=== PATIENT | female | born 1945 | race Caucasian/White ===

== ENCOUNTER 2023-07-28 08:56 | Day surgery (SDC) | payer OTHER, SELFPAY ==
[2023-07-28] VITALS (22 sets, daily range): BP systolic 107–173; BP diastolic 67–96; PULSE 57–90; RESP 14–18; TEMP 35.9–37; O2SAT 93–99; BMI 28.2
[2023-07-28] MEDS: ACETAMINOPHEN 500 MG TABLET 1000 MG PO ×3 (09:50→22:47)
[2023-07-28] MEDS: OXYCODONE (CR) 10 MG TAB.ER.12H PO (09:50)
[2023-07-28] MEDS: SCOPOLAMINE 1 MG/3 DAY PATCH 1 PATCH TRANSDERMA (10:10)
[2023-07-28] MEDS: LACTATED RINGERS 1000 ML 1,000 ML 100 ML IV (10:17)
[2023-07-28] MEDS: SODIUM CHLORIDE 0.9 % (FLUSH) 10 ML SYRINGE IVF (10:18)
--- NOTE | 2023-07-28 10:42 | W.PM.H&PU ---
History & Physical Update History & Physical Update H&P Reviewed and patient assessed: No changes noted
--- NOTE | 2023-07-28 10:43 | XR_ITS ---
Patient: WU MUÑOZ Facility:?[facility] Patient ID:?[id number] Site Patient ID:?[id number]. Site :?[id number] Study:?XRay-Knee Right POST OP-07/28/2023 3:46:41 PM Ordering Physician:DAGOBERTO Final Report: Indication: Postop TKA Technique: Two views right knee Findings/Impression: Hardware from a right total knee arthroplasty is in satisfactory position. Bone alignment is normal. No sign of acute fracture. Postop changes are within normal limits. Dictated by Flaquito Gleason MD @ 07/29/2023 8:56:45 AM Signed by:?Flaquito Gleason MD @07/29/2023 8:56:45 AM (Electronic Signature)
[2023-07-28] MEDS: MIDAZOLAM HCL 1 MG/ML inj IVP (11:32)
--- NOTE | 2023-07-28 11:51 | SUR.PREOP ---
TIME?OUT:?1132 PT/RN/MDA?VERIFICATION?OF?SURGICAL?SITE,?PROCEDURE,?AND?CONSENT OBTAINED?PRIOR?TO?INVASIVE?PROCEDURE. ALL IN AGREEMENT
--- NOTE | 2023-07-28 12:28 | W.PM.NB ---
Nerve Block Nerve Block Time Seen by Provider: 11:35 Date Seen: 07/28/23 Type of block requested by surgeon for post-operative analgesia: adductor canal Side: right Time out performed: Yes Verification of patient name: Yes Verification of date of : Yes Site marking: site marked Name of person performing procedure: Alexis Continuous monitoring Was continuous monitoring of O2 sat, B/P, quality assurance monitor body, recorded every 15 minutes?: Yes Procedure Checklist: sterile prep, needles and gloves Ultrasound guided. Images saved: Yes Medications given in 5ml increments after negative aspiration: Ropivicaine %: 0.5 mL: 20 Needle gauge: 20 Decadron (mg): 10 Precedex (mcg): 25 Patient tolerated procedure well: Yes Additional comments: Needle noted adjacent to nerve Block Charges Block Charge (with Pro Fee): Femoral Nerve Use of Ultrasound Machine for Block: Yes- US Guidance/pain block
--- NOTE | 2023-07-28 12:29 | W.PM.NB ---
Nerve Block Nerve Block Time Seen by Provider: 11:35 Date Seen: 07/28/23 Type of block requested by surgeon for post-operative analgesia: geniculars Side: right Time out performed: Yes Verification of patient name: Yes Verification of date of : Yes Site marking: site marked Name of person performing procedure: Alexis Continuous monitoring Was continuous monitoring of O2 sat, B/P, monitoring and evaluation advisor, recorded every 15 minutes?: Yes Procedure Checklist: sterile prep, needles and gloves Medications given in 5ml increments after negative aspiration: Ropivicaine %: 0.5 mL: 9 Needle gauge: 25 Patient tolerated procedure well: Yes Block Charges Block Charge (with Pro Fee): Genicular Nerve Block Use of Ultrasound Machine for Block: No
--- NOTE | 2023-07-28 12:29 | W.ANESCHARGE ---
Anesthesia Charges Start Date/Time Anesthesia Start Date: 07/28/23 Anesthesia Start Time: 12:13 Stop Date/Time Anesthesia Stop Date: 07/28/23 Anesthesia Stop Time: 14:13 Summary Extremes of Age - Over 70 or under 1: MDA
--- NOTE | 2023-07-28 13:34 | P.ORPRC_ITS ---
Procedure Note Date of procedure: 07/28/23 Procedure: PREOPERATIVE DIAGNOSIS: 1. Right knee osteoarthritis, primary, severe POSTOPERATIVE DIAGNOSIS: 1. Right knee osteoarthritis, primary, severe PROCEDURE: 1. Right total knee arthroplasty SURGEON: Levi Serrano MD. NURSING CONSULTANT: LITA Vuong - Of note, a skilled construction administrative assistant was critical for this case to aid in patient positioning, tissue retraction, limb manipulation/positioning, and closure. ANESTHESIA: Spinal anesthetic IMPLANTS: DePuy J&J all cemented TKA - Attune PS femur size 6 regular, size 5 tibia, 5 poly spacer, 35 mm patella TOURNIQUET: 80 minutes at 300 torr EBL: 50 ml COMPLICATIONS: None evident INDICATIONS: The patient is a pleasant 78-year-old female who has experienced severe right knee pain and difficulty bearing weight. Workup included x-rays w [facility] revealed severe osteoarthrosis in the knee. Given the deformity, the dysfunction, and the pain, as well as the failure of nonoperative management, recommendation was made for surgery. FINDINGS: Full-thickness chondral loss diffusely throughout the medial compartment with degenerative medial meniscus pathology. To lesser degree lateral and patellofemoral chondromalacia and lateral meniscus pathology. Large effusion upon entering the joint. DESCRIPTION OF PROCEDURE: Following a thorough discussion of risks, benefits, and alternatives consent was obtained and the right knee was marked. The patient was brought to the operating room and placed supine on the operating table. Induction of anesthesia was undertaken. 2 g IV Ancef and 1 g tranexamic acid was administered within 1 hr of incision preoperatively. Proper time-out was performed identifying proper patient, site, procedure. The operative extremity was prepped and draped in the appropriate sterile fashion using ChloraPrep after the patient was positioned supine with all bony prominences well padded. A longitudinal, anterior, midline skin incision was made starting approximately 3cm proximal to the superior pole of the patella and advanced distal to the tibial tubercle. A median parapatellar arthrotomy was created. A medial subperiosteal sleeve was created with knife, irving elevator and curved osteotome. The retropatellar fatpad was resected and the synovium in the suprapatellar pouch excised to visualize the anterior femoral cortex. Femoral preparation was performed via an intramedullary guide. Step drill allowed access into the femoral canal. The distal cutting guide was placed with 5? of valgus and 10 mm cut on the distal femur. Femur was sized using a posterior referencing guide in 3? of external rotation. This found have a best fit with the sizing noted above. The 4 in 1 cutting block was then placed, and the distal femur shaped accordingly. The box cut was then created and the trial implant inserted to confirm appropriate fit. We turned our attention to the proximal tibia. Extramedullary guide was utilized for cutting with the goal of being 90 degree cut from the mechanical axis of the tibia in the varus/valgus plane utilizing tibial crest as the primary alignment. Initially a 2 mm resection was performed from the medial tibial plateau. Ultimately, balancing was achieved in both flexion and extension in both varus and valgus. The knee was able to achieve full extension as well comfortably. The patella was initially measured and found have a thickness of 21 mm. It was resected back to approximately 14 mm. It was sized to be a best fit with as noted above. This was drilled, trial placed. All trials were placed and found to have an excellent stability and balance. At this stage, trial implants were removed, the knee was thoroughly irrigated with normal saline, and the cement was mixed. After irrigation, the knee was thoroughly dried, and cement placed, with the real tibial and femoral implants placed along with the patella. Trial poly spacer was placed and confirmed to have excellent range of motion and full extension, and the real poly spacer opened and inserted. All extra cement was removed, and a 3 min Betadine soak performed. Finally, a final irrigation round with normal saline was performed. Closure performed with 0 Vicryl and #0 Stratafix for the quad tendon/retinaculum. 2-0 Vicryl for the subcutaneous and 4-0 Stratafix for subcuticular closure. Dressings were applied and the patient was awoken from anesthesia after the tourniquet deflated and transferred the PACU in stable condition. A skilled construction administrative assistant was critical for this case to aid in patient positioning, tissue retraction, bone exposure, limb manipulation/positioning, patient safety, and closure. PLAN: 1. Weight bear as tolerated operative extremity. 2. 23 hr perioperative antibiotics. 3. Ice. 4. PT/OT consults for ambulation assistance/mobility education. 5. Social work consult for discharge planning. 6. DVT prophylaxis with at SCDs, Dameon Hose, and aspirin twice daily.
[2023-07-28] MEDS: LACTATED RINGERS 1000 ML 1,000 ML 35 ML IV (14:29)
[2023-07-28] MEDS: OXYCODONE 5 MG TABLET PO ×2 (16:26→22:48)
--- NOTE | 2023-07-28 17:07 | P.IMCN_ITS ---
Date of Consult Patient: Naresh Patient Consult date: 07/28/23 Requesting Physician: Orthopedics Primary Care Provider: Shayla Hamm, DO Consult Narrative Narrative: Savi Caceres is a 78 year old female who underwent right total knee arthroplasty today. Procedure performed by Dr. Serrano. He requests consultation for management of medical problems following surgery. There were no apparent operative complications. Postoperatively patient was feeling quite chilled. She has had a Eleuterio Hugger in place and is now warming up. She also reports a history of severe postoperative nausea but reports she is doing okay at this time. Her pain is adequately controlled though she is beginning to have some increasing knee pain. She reports when she came to the hospital today she was feeling fine. She had a preop physical which did not reveal any significant perioperative concerns. Review of Systems Narrative: No recent illness or injury [facility] Medical History (Updated 07/28/23 @ 17:15 by Rachid Chiang MD) Osteopenia ?M85.80 - Other specified disorders of bone density and structure, unspecified site (ICD-10) Breast cancer, left (1999) ?C50.912 - Malignant neoplasm of unspecified site of left female breast (ICD- 10) Cholecystitis ?K81.9 - Cholecystitis, unspecified (ICD-10) Acute and chronic cholecystitis ?K81.2 - Acute cholecystitis with chronic cholecystitis (ICD-10) Surgical History (Updated 07/28/23 @ 17:14 by Rachid Chiang MD) History of bunionectomy of left great toe (1994) ?Z98.890 - Other specified postprocedural states (ICD-10) S/P ORIF (open reduction internal fixation) fracture (06/10/12) ?Z98.890 - Other specified postprocedural states (ICD-10) ?Z87.81 - Personal history of (healed) traumatic fracture (ICD-10) Hx of cholecystectomy ?Z90.49 - Acquired absence of other specified parts of digestive tract (ICD- 10) Status post blepharoplasty of both eyes (05/2019) ?Z98.890 - Other specified postprocedural states (ICD-10) H/O breast biopsy ?Z98.890 - Other specified postprocedural states (ICD-10) H/O: hysterectomy ?Z90.710 - Acquired absence of both cervix and uterus (ICD-10) Family History (Updated 07/28/23 @ 17:11 by Rachid Chiang MD) Brother CML (chronic myelocytic leukemia) Prostate cancer Cardiovascular disease Mother Alzheimers disease Father Cardiovascular disease Colon cancer Social History (Updated 07/28/23 @ 17:12 by Rachid Chiang MD) Narrative: She lives at home with her . She does not smoke. She infrequently drinks alcohol. She lives in a house where her bedroom/bathroom is up 17 steps. She hopes to return home and sleep in her bedroom. What is your current living situation?: I presently have a place to live In the past 12 months, utilities in danger of being shut off: no In past 12 months, lack of transportation kept you from medical appts, meetings, work, or getting things needed for daily living: no In the past 12 mos, have been you worried that your food would run out before you had money to buy more?: never true In the past 12 mos, the food you bought just didn't last and you didn't have money to buy more?: never true Smoking Status: Never smoker How often do you have a drink containing alcohol: monthly or less How many standard drinks containing alcohol do you have on a typical day: 1 or 2 How often do you have six or more drinks on one occasion: Never AUDIT-C Alcohol total score: 1 Non-prescribed substance use: denies use Caffeine: Yes How often does anyone, including family, friends and others, physically hurt you : never How often does anyone, including family, friends and others, insult or talk down to you: never How often does anyone, including family, friends and others, threaten you with harm: never How often does anyone, including family, friends and others, scream or curse at you: never service: No Meds Home Medications and Allergies Home Medications Medication Instructions Recorded Confirmed Type alendronate 70 mg tablet 70 mg PO Q7D 06/08/23 07/28/23 History omega 7-pqs-jws-fish oil 100 1 cap PO DAILY 06/08/23 07/28/23 History mg-160 mg-1,000 mg capsule (Fish Oil) simvastatin 20 mg tablet 20 mg PO HS 06/08/23 07/28/23 History azelaic acid 15 % topical gel topical BID 07/28/23 History cholecalciferol (vitamin D3) 25 25 mcg PO DAILY 07/28/23 07/28/23 History mcg (1,000 unit) tablet diclofenac sodium 1 % topical gel 2 g topical QID 07/28/23 07/28/23 History (Motrin Arthritis Pain) glucosamine sulfate 500 mg tablet 500 mg PO TID 07/28/23 07/28/23 History (Glucosamine) multivitamin (Daily Value tablet) 1 tab PO DAILY 07/28/23 07/28/23 History Allergies Allergy/AdvReac Type Severity Reaction Status Date / Time fentanyl Allergy Intermediate Vomiting Verified 07/28/23 09:18 midazolam [From Versed] Allergy Intermediate Vomiting Verified 07/28/23 09:18 Exam Narrative: Exam Narrative: She is alert and appears in no distress. Oropharynx is normal. Neck is supple without mass or adenopathy. Respirations are clear to auscultation. Cardiovascular: S1, S2, regular rate and rhythm. No murmur gallop or rub. Abdomen: Bowel sounds active. Abdomen is soft without tenderness or mass. Right knee with bandage over the wound. Mild swelling. Distally no edema. Intact pulses sensation and good strength and motion in both feet and ankles Const: Vital Signs, click to edit/add: Vital Signs - 24 hr 07/28/23 10:15 07/28/23 11:35 07/28/23 11:40 Temperature 98.5 F Pulse Rate 90 60 59 L Respiratory Rate 16 18 18 Blood Pressure 173/93 H 135/79 155/77 H Pulse Oximetry 98 97 96 Oxygen Delivery Me thod Room Air Nasal Cannula Room Air Oxygen Flow Rate 2 07/28/23 14:09 07/28/23 14:14 07/28/23 14:19 Temperature 97 F L Pulse Rate 78 75 62 Respiratory Rate 15 15 15 Blood Pressure 107/68 107/71 111/72 Pulse Oximetry 95 95 95 Oxygen Delivery Me thod Room Air Room Air Room Air Oxygen Flow Rate 07/28/23 14:24 07/28/23 14:29 07/28/23 14:34 Temperature Pulse Rate 59 L 57 L 64 Respiratory Rate 15 15 15 Blood Pressure 117/74 117/67 122/68 Pulse Oximetry 97 97 98 Oxygen Delivery Me thod Room Air Room Air Room Air Oxygen Flow Rate 07/28/23 14:39 07/28/23 14:44 07/28/23 14:47 Temperature Pulse Rate 60 59 L 64 Respiratory Rate 15 15 14 Blood Pressure 124/72 128/85 130/70 Pulse Oximetry 99 99 99 Oxygen Delivery Me thod Room Air Room Air Room Air Oxygen Flow Rate Documenting provider has reviewed patient's vital signs: yes Assessment and Plan Assessment and plan (1) History of arthroplasty of right knee: Problem comment: 07/28/2023. Dr. Serrano. No complications Status: Acute (2) Osteopenia: Status: Acute Plan Patient is admitted to the hospital for right knee arthroplasty and routine postoperative care. Anticipate her immediate postoperative symptoms of nausea and chills will resolved. Routine therapy and routine pain management. Total Time Spent Total Time Spent: Total time spent today is 30 minutes, 20 minutes in coordination care discussing with patient and ongoing evaluation management of knee arthroplasty and postoperative care
[2023-07-28] MEDS: CEFAZOLIN 2 GM in 0.9 % SODIUM CHLORIDE Mini-bag 100 ML IVPB (18:44)
[2023-07-28] MEDS: ASPIRIN 81 MG TABLET EC PO (21:27)
[2023-07-28] MEDS: SIMVASTATIN 20 MG TABLET PO (21:27)
[2023-07-28] MEDS: SENNOSIDES 1 TAB TABLET 2 TAB PO (21:27)
[2023-07-29] MEDS: OXYCODONE 5 MG TABLET PO ×3 (01:56→09:17)
[2023-07-29] MEDS: CEFAZOLIN 2 GM in 0.9 % SODIUM CHLORIDE Mini-bag 100 ML IVPB (01:57)
[2023-07-29 02:08] VITALS: BP 149/72; PULSE 62; RESP 16; TEMP 37.1; O2SAT 97
[2023-07-29] MEDS: ACETAMINOPHEN 500 MG TABLET 1000 MG PO ×2 (05:42→12:07)
[2023-07-29 06:42] LABS: Hematocrit 36.2 % (33.0-51.0); Hemoglobin* 11.8 gm/dL (12.0-16.0); Immature Granulocytes Pct Auto 0.9 %; Lymphocytes Percent Auto 15.3 % (20-44); Mean Corpuscular HGB Conc 33 gm/dL (32-36); Mean Corpuscular Hemoglobin 28 pg (26-34); Mean Corpuscular Volume 87 fL (80-100); Monocytes Percent Auto 6.9 % (0.0-11.0); Neutrophils Percent Auto 76.9 % (42.0-72.0); Platelet Count* 275 K/uL (140-440); RDW Coefficient of Variation % 12.7 % (11.5-15.5); Red Blood Count 4.15 m/uL (4.00-5.20); White Blood Count* 14.71 K/uL (4.50-11.00)
--- NOTE | 2023-07-29 06:49 | PC.NURSE ---
Shift note: Pt is doing well ambulating with A1, walker and GB. Pain level was minimal at the beginning of shift but increased to 10/10 at 0400 per pt. Pt had enough urine and tolerated regular diet well. Saline locked. Dressing appeared clean and dry. Ice pack applied. Pleasant, A/O.
[2023-07-29 06:56] LABS: Potassium* 4.1 mmol/L (3.6-5.1); Sodium* 135 mmol/L (135-149)
[2023-07-29 06:59] LABS: Blood Urea Nitrogen* 17 mg/dL (7-30); Creatinine* 0.5 mg/dL (0.5-1.5); Estimated Glomerular Filt Rate 96 ml/min
[2023-07-29 07:02] LABS: Slide Review Reflex No
[2023-07-29] MEDS: GLUCOSAMINE SULFATE 500 MG CAPSULE PO (09:17)
[2023-07-29] MEDS: ASPIRIN 81 MG TABLET EC PO (09:17)
[2023-07-29] MEDS: MULTIVITAMIN/MINERALS 1 TABLET 1 TAB PO (09:17)
[2023-07-29] MEDS: SENNOSIDES 1 TAB TABLET 2 TAB PO (09:17)
[2023-07-29 09:23] VITALS: BP 136/73; PULSE 75; RESP 16; O2SAT 95
--- NOTE | 2023-07-29 11:18 | PM.ORPN ---
Subjective Subjective Date Seen: 07/29/23 Principal diagnosis: Status postop day 1 right total knee arthroplasty Interval history: Patient reports doing okay; stats that it hurts post PT this morning. Mild right calf pain. No acute events over night. Pain managed with scheduled and PRN medications, ice. DVT prophylaxis: 81 mg aspirin by mouth twice daily, bilateral knee high Dameon stockings, SCDs, walking. Denies fevers, chills, aches, N/V, CP, SOB/GUY, or lightheadedness. Ortho Exam Narrative Exam Narrative: -Patient appears comfortable; no apparent acute distress -Alert and oriented times 3 -Operative knee mildly swollen; soft tissues supple; no ecchymosis; no erythematous streaking Warmth appropriate -Surgical dressing clean, dry, intact; no drainage -Bilateral calfs soft; no significant swelling, edema, erythema, discoloration, warmth, or palpable cords. Mild-moderate tender right calf -2+ DP/PT pulses, intact dermatomes and myotomes distally (5/5 strength) Const Vital Signs, click to edit/add: Vital Signs - 24 hr 07/28/23 11:35 07/28/23 11:40 07/28/23 14:09 Temperature 97 F L Pulse Rate 60 59 L 78 Pulse Rate [Pulse Oximeter] Respiratory Rate 18 18 15 Blood Pressure 135/79 155/77 H 107/68 Blood Pressure [Right Arm] Pulse Oximetry 97 96 95 Oxygen Delivery Method Nasal Cannula Room Air Room Air Oxygen Flow Rate 2 07/28/23 14:14 07/28/23 14:19 07/28/23 14:24 Temperature Pulse Rate 75 62 59 L Pulse Rate [Pulse Oximeter] Respiratory Rate 15 15 15 Blood Pressure 107/71 111/72 117/74 Blood Pressure [Right Arm] Pulse Oximetry 95 95 97 Oxygen Delivery Method Room Air Room Air Room Air Oxygen Flow Rate 07/28/23 14:29 07/28/23 14:34 07/28/23 14:39 Temperature Pulse Rate 57 L 64 60 Pulse Rate [Pulse Oximeter] Respiratory Rate 15 15 15 Blood Pressure 117/67 122/68 124/72 Blood Pressure [Right Arm] Pulse Oximetry 97 98 99 Oxygen Delivery Method Room Air Room Air Room Air Oxygen Flow Rate 07/28/23 14:44 07/28/23 14:47 07/28/23 15:00 Temperature Pulse Rate 59 L 64 Pulse Rate [Pulse Oximeter] Respiratory Rate 15 14 Blood Pressure 128/85 130/70 Blood Pressure [Right Arm] Pulse Oximetry 99 99 95 Oxygen Delivery Method Room Air Room Air Oxygen Flow Rate 07/28/23 15:00 07/28/23 15:15 07/28/23 15:30 Temperature 96.7 F L 97 F L Pulse Rate 61 66 68 Pulse Rate [Pulse Oximeter] Respiratory Rate 14 14 14 Blood Pressure 141/96 H 139/85 150/93 H Blood Pressure [Right Arm] Pulse Oximetry 96 96 96 Oxygen Delivery Method Room Air Room Air Room Air Oxygen Flow Rate 07/28/23 15:45 07/28/23 16:00 07/28/23 16:30 Temperature 98 F Pulse Rate 70 68 68 Pulse Rate [Pulse Oximeter] Respiratory Rate 14 14 16 Blood Pressure 145/89 H 145/85 H 149/84 H Blood Pressure [Right Arm] Pulse Oximetry 96 96 96 Oxygen Delivery Method Room Air Room Air Room Air Oxygen Flow Rate 07/28/23 17:00 07/28/23 19:00 07/28/23 20:00 Temperature 98.6 F 98 F Pulse Rate 76 79 77 Pulse Rate [Pulse Oximeter] Respiratory Rate 16 16 16 Blood Pressure 138/79 140/85 H 136/78 Blood Pressure [Right Arm] Pulse Oximetry 96 93 95 Oxygen Delivery Method Room Air Room Air Room Air Oxygen Flow Rate 2 07/28/23 23:00 07/28/23 23:00 07/29/23 02:08 Temperature 98 F 98.8 F Pulse Rate Pulse Rate [Pulse Oximeter] 68 62 Respiratory Rate 16 16 Blood Pressure Blood Pressure [Right Arm] 134/74 149/72 H Pulse Oximetry 95 95 97 Oxygen Delivery Method Room Air Room Air Oxygen Flow Rate 07/29/23 09:23 Temperature Pulse Rate Pulse Rate [Pulse Oximeter] 75 Respiratory Rate 16 Blood Pressure Blood Pressure [Right Arm] 136/73 Pulse Oximetry 95 Oxygen Delivery Method Room Air Oxygen Flow Rate Assessment and Plan Assessment and plan (1) History of arthroplasty of right knee: Problem details: 07/28/2023. Dr. Serrano. No complications Status: Acute (2) Osteopenia: Status: Acute Plan - Complete 23 hour perioperative antibiotics. - PT/OT consult for education and assistance. - Social work consult for discharge planning - Prescribed analgesics as needed - DVT prophylaxis: 81 mg aspirin by mouth twice daily, bilateral knee high Dameon Hose stockings and SCDs. She is mild-moderately tender right calf without any overt evidence of acute DVT. Will continue to watch. She understands what to watch for at home - Anticipation is for discharge to [Home/SNF] if the patient remains medically stable, pain is controlled, and they are safe with mobilization.
--- NOTE | 2023-07-29 14:36 | PC.NURSE ---
The patient discharged home with her . She reported moderate to severe pain in her R knee especially with ambulation. Educated her about pain medication and the use of visceral that was ordered. I also educated her on the importance of signs of infection to follow up on. Follow up was scheduled. Dorothy HERNANDEZ BSN
--- NOTE | 2023-08-16 12:41 | W.ANESCHARGE ---
Anesthesia Charges Start Date/Time Anesthesia Start Date: 07/28/23 Anesthesia Start Time: 12:13 Stop Date/Time Anesthesia Stop Date: 07/28/23 Anesthesia Stop Time: 14:13
== END 2023-07-29 13:12 | disposition home or self-care (01) ==
LOC: OR 08:57 → MEDSURG 09:00
PROVIDERS: PCP Family Medicine; Visit Provider Orthopaedic Surgery Sports Medicine
PROC: (CPT 27447; principal; 2023-07-28 12:00)
DX: M17.11 Unilateral primary osteoarthritis, right knee (principal); G89.18 Other acute postprocedural pain; R11.0 Nausea; M85.88 Other specified disorders of bone density and structure, other site; M79.661 Pain in right lower leg
CPT/HCPCS: 27447; 01402; 36415; 64447; 64454; 73560; 76942; 82565; 84132; 84295; 84520; 85025; 97110; 97116; 97161; 97165; 97530; 97535; 99100; A9153; A9270; C1776; J0690; J1100; J2250; J2405; J2704; J2795; J7120

== ENCOUNTER 2023-09-09 11:15 | Outpatient (RCR) | payer OTHER, SELFPAY ==
--- NOTE | 2023-07-21 12:26 | PT.OPEX ---
PT [place] Outpatient Eval PT [facility] Outpatient Eval Start: 07/21/23 08:00 Freq: Status: Active Protocol: Document 07/21/23 11:01 AMS (Rec: 07/21/23 12:05 [facility] [id number]) E-signed By Portia Renteria PT Physical Therapy Outpatient Evaluation Insurance Information Recert Due Date 10/14/23 Insurance Name [employer],Medicare B Insurance Information/Comments [facility] Diagnosis Right knee arthroplasty Osteoarthritis of right knee Treating Diagnosis Right knee pain Right knee stiffness Muscle weakness Difficulty walking Referring MD Lvei Serrano MD Subjective Subjective Savi returns today with a new problem of right knee pain. Presents with her today. She states she has been having pain since Sep, 2022. The patient has tried ice, Tylenol/oral NSAIDs, rest, activity modification, Voltaren gel, cortisone injections, physical therapy, home exercise plan provided by a physician all with minimal and non-lasting relief. The pain is worse with walking, getting in and out of a vehicle, stairs. The pain is of the anterior and medial knee. Her pain is sharp, intermittent and relieves with rest. The left knee is also painful, but the right knee is worse. -Dr. Serrano, confirmed by pt, 06/08/23 Patient presents to physical therapy for pre-operative appointment prior to right knee arthroplasty scheduled for 07/28/[address] Serrano. She reports that she did physical therapy from January of 2023 until more recently, which she feels really put her in a better place going into surgery and did give some relief. She states the injections were in November and February of 2023, and these were helpful for 2 weeks to 2 months in duration. She continues to have pain with stairs, walking, getting in and out of the car, and biking . Please see pre-op note for complete home set up. Pt lives in a multi-level home with her spouse and has 17 stairs to get up to the bedroom with one railing. States she has been going up one at a time now for awhile, so she is used to going up with left and down with the right already. Her is available 24-7 hours/day after surgery to assist. She has an ice machine she will use after surgery, a FWW, and cane. She would like to get back to biking and hiking after surgery. Currently, she walks 15 min twice per day and bikes for 15 min per day on stationary bike. She continues to do strengthening exercises from therapy 3x/week. PMHx significant for osteoporosis, oopherectomy, breast cancer, benign breast tissue removal, hysterectomy, and gallbladder removal. Also had fluid aspiration procedure from right knee at [facility] in February. Pain Comments 3/10 at average higher/10 at worst, shooting with activity 0/10 at best (rest) Date of Last Physician Visit 06/08/23 Date of Surgery (If applicable) 07/28/23 Current Work Status Retired Precautions Treatment Precautions/Contraindications Hx of breast cancer, osteoporosis Weight Bearing Status Weight Bear as Tolerated Objective Other/Pertinent Objective Knee ROM L 0-0-120 R 0-2-125 Hip ROM Grossly WNL Strength: Hip flexors: 4+/5 R, 4+/5 L Knee extensors: 5/5 R, 5/5 L Knee flexors: 4+/5 R, 4+/5 L Gait/balance: Ambulates with mildly antalgic gait, otherwise normalized without assistive device. Palpation/joint mobility: Mild TTP over medial joint line, otherwise no other TTP. Swelling/observation: No swelling appreciated. Functional Test Performed & Score None Assessment Assessment/Impression Patient is a 78 year old female presenting for pre- operative visit prior to right total knee arthroplasty scheduled for 07/28/23. Upon assessment, patient demonstrates mildly decreased knee ROM, decreased hip strength, and mildly antalgic gait pattern. These impairments lead to difficulties with walking, standing longer periods, getting in and out of the car, biking, hiking, and stairs. Patient will be seen post operatively to reassess impairments that will be addressed with skilled care. Savi would greatly benefit from skilled PT in order to progress strength, ROM, and ambulation post operatively in order to perform all household and recreational activities such as biking and hiking without significant difficulty or discomfort. Primary Functional Limitations walking, standing longer periods, getting in and out of the car, biking, hiking, and stairs. Plan of Care Rehabilitation Potential Good Physical Therapy Goals After pre-op visit: ? Patient will be independent with HEP ? Patient will verbalize knowledge of stair navigation and proper sequencing ? Patient will have knowledge on home adaptations and use of assistive devices post operatively ? Patient will have knowledge of edema management [facility] Coordination/Communication With Referral Source Treatment Plan/Direct Interventions Compression Garments,Gait Training,Joint Mobilization, Manual Therapy,Neuromuscular Re-ed,Self-Care/Home Management,Therapeutic Activities,Therapeutic Exercises Frequency/Duration 1x visit prior to surgery on . Patient scheduled to start outpatient PT s/p TKA on 07/30/23. Has HEP to start with pre-operatively. Patient Will Be Discharged From Therapy Completion of LTG(s), Independent w/HEP, Independently Progressing Evaluation Billing Untimed Code Treatment Minutes 15 Complexity Low Certification Information Initial Certification Date 07/21/23 Ending Certification Date 10/14/23 Provider Signature Shows Agreement With POC & Medical Necessity Physician Signature & Date Requested Please Sign/Date Here Physician Comment/Change : Physician NPI Number #
== END 2023-09-15 09:54 | disposition home or self-care (01) ==
PROVIDERS: PCP Family Medicine; Visit Provider Orthopaedic Surgery Sports Medicine
DX: M17.11 Unilateral primary osteoarthritis, right knee (principal); Z96.651 Presence of right artificial knee joint; Z51.89 Encounter for other specified aftercare
CPT/HCPCS: 97110; 97112; 97116; 97140; 97161; 97164

== ENCOUNTER 2024-07-17 08:31 | Day surgery (SDC) | payer OTHER, SELFPAY ==
[2024-07-17] VITALS (29 sets, daily range): BP systolic 86–144; BP diastolic 52–92; PULSE 46–93; RESP 14–20; TEMP 36.1–36.8; O2SAT 92–100; BMI 28.7
[2024-07-17] MEDS: SCOPOLAMINE 1 MG/3 DAY PATCH 1 PATCH TRANSDERMA (08:00)
[2024-07-17] MEDS: OXYCODONE (CR) 10 MG TAB.ER.12H PO (09:05)
--- NOTE | 2024-07-17 09:06 | W.PM.H&PU ---
History & Physical Update History & Physical Update H&P Reviewed and patient assessed: No changes noted
[2024-07-17] MEDS: ACETAMINOPHEN 500 MG TABLET 1000 MG PO ×3 (09:12→21:50)
[2024-07-17] MEDS: SODIUM CHLORIDE 0.9 % (FLUSH) 10 ML SYRINGE IVF (09:30)
[2024-07-17] MEDS: LACTATED RINGERS 1000 ML 1,000 ML 100 ML IV (09:30)
[2024-07-17] MEDS: ONDANSETRON 2 MG/ML inj 4 MG IVP (09:40)
[2024-07-17] MEDS: MIDAZOLAM HCL 1 MG/ML inj IVP (10:04)
--- NOTE | 2024-07-17 10:08 | SUR.PREOP ---
TIME?OUT:? 1002, left knee PT/RN/MDA?VERIFICATION?OF?SURGICAL?SITE,?PROCEDURE,?AND?CONSENT OBTAINED?PRIOR?TO?INVASIVE?PROCEDURE.
[2024-07-17] MEDS: TRANEXAMIC ACID 100 MG/ML INJ 1000 MG IV (10:35)
[2024-07-17] MEDS: CEFAZOLIN 2 GM in 0.9 % SODIUM CHLORIDE Mini-bag 100 ML IVPB ×3 (10:43→23:00)
--- NOTE | 2024-07-17 11:53 | PM.ORPRC ---
Procedure Note Date of procedure: 07/17/24 Procedure: PREOPERATIVE DIAGNOSIS: 1. Left knee osteoarthritis, primary, severe POSTOPERATIVE DIAGNOSIS: 1. Left knee osteoarthritis, primary, severe PROCEDURE: 1. Left total knee arthroplasty - subvastus SURGEON: Levi Serrano MD. KENNEL SUPERVISOR: Dirk Mai PA-C - Of note, a skilled housekeeping assistant was critical for this case to aid in patient positioning, tissue retraction, limb manipulation/positioning, and closure. ANESTHESIA: Spinal anesthetic EBL: 50ml IMPLANTS: DePuy J&J all cemented TKA - Attune PS femur size 6 regular Size 5 tibia 5 mm poly spacer 35 mm patella TOURNIQUET: 85 minute at 300 torr COMPLICATIONS: None evident INDICATIONS: The patient is a pleasant 79-year-old female who has experienced severe left knee pain and difficulty bearing weight. Workup included x-rays which revealed severe osteoarthrosis in the knee. Given the deformity, the dysfunction, and the pain, as well as the failure of nonoperative management, recommendation was made for surgery. FINDINGS: Full-thickness chondral loss diffusely throughout the knee including medial and lateral compartments especially. To lesser degree patellofemoral. Degenerative meniscus pathology lateral greater than medial. Large effusion upon entering the joint. DESCRIPTION OF PROCEDURE: Following a thorough discussion of risks, benefits, and alternatives consent was obtained and the left knee was marked. The patient was brought to the operating room and placed supine on the operating table. Induction of anesthesia was undertaken. 2 g IV Ancef and 1 g tranexamic acid was administered within 1 hr of incision preoperatively. Proper time-out was performed identifying proper patient, site, procedure. The operative extremity was prepped and draped in the appropriate sterile fashion using ChloraPrep after the patient was positioned supine with all bony prominences well padded. A longitudinal, anterior, midline skin incision was made starting approximately 3cm proximal to the superior pole of the patella and advanced distal to the tibial tubercle. A subvastus approach was utilized. A medial subperiosteal sleeve was created with knife, irving elevator and curved osteotome. The retropatellar fatpad was resected and the synovium in the suprapatellar pouch excised to visualize the anterior femoral cortex. Femoral preparation was performed via an intramedullary guide. Step drill allowed access into the femoral canal. The distal cutting guide was placed with 5? of valgus and 10 mm cut on the distal femur. Femur was sized using a posterior referencing guide in 3? of external rotation. This found have a best fit with the sizing noted above. The 4 in 1 cutting block was then placed, and the distal femur shaped accordingly. The box cut was then created and the trial implant inserted to confirm appropriate fit. We turned our attention to the proximal tibia. Extramedullary guide was utilized for cutting with the goal of being 90 degree cut from the mechanical axis of the tibia in the varus/valgus plane utilizing tibial crest as the primary alignment. Initially a 3 mm resection was performed from the medial tibial plateau. Ultimately, balancing was achieved in both flexion and extension in both varus and valgus. The knee was able to achieve full extension as well comfortably. The patella was initially measured and found have a thickness of 24.5 mm. It was resected back to approximately 14 mm. It was sized to be a best fit with as noted above. This was drilled, trial placed. All trials were placed and found to have an excellent stability and balance. At this stage, trial implants were removed, the knee was thoroughly irrigated with normal saline, and the cement was mixed. After irrigation, the knee was thoroughly dried, and cement placed, with the real tibial and femoral implants placed along with the patella. Trial poly spacer was placed and confirmed to have excellent range of motion and full extension, and the real poly spacer opened and inserted. All extra cement was removed, and a 3 min Betadine soak performed. Finally, a final irrigation round with normal saline was performed. Closure performed with 0 PDS and #0 Stratafix for the quad tendon/retinaculum. 2-0 Vicryl/Stratafix for the subcutaneous and 4-0 Monocryl for subcuticular closure. Dressings were applied and the patient was awoken from anesthesia after the tourniquet deflated and transferred the PACU in stable condition. A skilled housekeeping assistant was critical for this case to aid in patient positioning, tissue retraction, bone exposure, limb manipulation/positioning, patient safety, and closure. PLAN: 1. Weight bear as tolerated operative extremity. 2. 23 hr perioperative antibiotics. 3. Ice. 4. PT/OT consults for ambulation assistance/mobility education. 5. Social work consult for discharge planning. 6. DVT prophylaxis with at SCDs and aspirin twice daily.
--- NOTE | 2024-07-17 12:46 | W.ANESCHARGE ---
Anesthesia Charges Start Date/Time Anesthesia Start Date: 07/17/24 Anesthesia Start Time: 10:22 Stop Date/Time Anesthesia Stop Date: 07/17/24 Anesthesia Stop Time: 12:43 Coding CPT Codes CPT Codes: ANESTH KNEE ARTHROPLASTY - 60099 ([id number]) P2 - PATIENT W/MILD SYST DISEASE, QK - DAYTIME CAREGIVER 2-4 CNCRNT ANES PROC, QX - ZOO DIRECTOR SVC W/ MD MED DIRECTION
--- NOTE | 2024-07-17 12:47 | W.ANESCHARGE ---
Anesthesia Charges Start Date/Time Anesthesia Start Date: 07/17/24 Anesthesia Start Time: 10:22 Stop Date/Time Anesthesia Stop Date: 07/17/24 Anesthesia Stop Time: 12:43 Summary Extremes of Age - Over 70 or under 1: MDA Coding CPT Codes CPT Codes: ANESTH KNEE ARTHROPLASTY - 15044 ([id number]) QK - ORDER DETAILER 2-4 CNCRNT ANES PROC, QX - HEAD ANIMAL TRAINER SVC W/ MD MED DIRECTION, P2 - PATIENT W/MILD SYST DISEASE Additional Codes: Summary - Extremes of Age - Over 70 or under 1: MDA ([id number])
--- NOTE | 2024-07-17 13:03 | W.PM.NB ---
Nerve Block Nerve Block Time Seen by Provider: 10:08 Date Seen: 07/17/24 Type of block requested by surgeon for post-operative analgesia: adductor canal Side: left Time out performed: Yes Verification of patient name: Yes Verification of date of : Yes Site marking: site marked Name of person performing procedure: Alexis Continuous monitoring Was continuous monitoring of O2 sat, B/P, monitoring manager, recorded every 15 minutes?: Yes Procedure Checklist: sterile prep, needles and gloves Ultrasound guided. Images saved: Yes Medications given in 5ml increments after negative aspiration: Marcaine %: 0.25 mL: 15 Needle gauge: 20 Precedex (mcg): 25 Patient tolerated procedure well: Yes Block Charges Block Charge (with Pro Fee): Femoral Nerve Use of Ultrasound Machine for Block: Yes- US Guidance/pain block
--- NOTE | 2024-07-17 13:03 | W.PM.NB ---
Nerve Block Nerve Block Time Seen by Provider: 10:08 Date Seen: 07/17/24 Type of block requested by surgeon for post-operative analgesia: geniculars Side: left Time out performed: Yes Verification of patient name: Yes Verification of date of : Yes Site marking: site marked Name of person performing procedure: Alexis Continuous monitoring Was continuous monitoring of O2 sat, B/P, alarm security or surveillance monitor, recorded every 15 minutes?: Yes Procedure Checklist: sterile prep, needles and gloves Ultrasound guided. Images saved: Yes Medications given in 5ml increments after negative aspiration: Marcaine %: 0.25 mL: 9 Needle gauge: 25 Patient tolerated procedure well: Yes Block Charges Block Charge (with Pro Fee): Genicular Nerve Block
[2024-07-17] MEDS: LACTATED RINGERS 1000 ML 1,000 ML 30 ML IV (13:05)
[2024-07-17] MEDS: LACTATED RINGERS 1000 ML 1,000 ML 35 ML IV (13:40)
--- NOTE | 2024-07-17 13:54 | SUR.PHASEI ---
patient meets pacu d/c criteria, bp monitored and addressed with traffic control supervisor, no treatment required per traffic control supervisor d/t MAP above 65, wnr mentation throughout and no concerns noted
[2024-07-17] MEDS: OXYCODONE 5 MG TABLET PO ×3 (14:57→23:01)
--- NOTE | 2024-07-17 16:39 | PM.IMCN1 ---
Date of Consult Consult date: 07/17/24 Requesting Physician: Orthopedics Primary Care Provider: Shayla Hamm, Consult Narrative Narrative: HOSPITALIST CONSULT Procedure: Left total knee arthroplasty - subvastus SURGEON: Levi Serrano MD. ANESTHESIA: Spinal anesthetic EBL: 50ml COMPLICATIONS: None evident The hospital medicine team was asked by the orthopedic surgery team to manage the patient's hypertension, hyperlipidemia. There have been no perioperative complications. I have updated and reviewed the active medical problems, past medical history, past surgical history, social history, allergies and medications in our electronic EMR. This includes a cross reference to care everywhere in [facility] and with [email or web address] databases. PHYSICAL EXAM: CODE STATUS: FULL CODE CONSTITUTIONAL: Conversive, good historian. A/O. Knows setting and context. VITAL SIGNS: see record. HEENT: Normocephalic, atraumatic. PERRL, EOMI, conjunctivae pink, no scleral icterus. Ears and nose externally normal. Pharynx normal. NECK: No JVD. No carotid bruit, no thyromegaly, no adenopathy. CHEST: Clear to auscultation bilaterally HEART: S1 and S2 normal. ABDOMEN: Flat, soft, nontender. Normal bowel sounds. Moderately obese. EXTREMITIES: No edema. MUSCULOSKELETAL: His left knee surgical dressing is intact without concern. NEURO: Cranial nerves intact. Mentation normal. Normal affect. SKIN: No rashes, petechiae, concerning changes PSYCHIATRIC: Mentation normal. INVESTIGATIONS: EMR Reviewed; Pre-OP Reviewed DISPOSITION: DVT: Agree with Ortho team decision GI: PO intake PFSH [facility] Medical History (Updated 07/17/24 @ 17:15 by Leslye Hernandez MD) Osteoarthritis of left knee ?M17.12 - Unilateral primary osteoarthritis, left knee (ICD-10) Hyperlipidemia ?E78.5 - Hyperlipidemia, unspecified (ICD-10) Rosacea ?L71.9 - Rosacea, unspecified (ICD-10) Malignant neoplasm of breast ?C50.919 - Malignant neoplasm of unspecified site of unspecified female breast (ICD-10) Osteopenia ?M85.80 - Other specified disorders of bone density and structure, unspecified site (ICD-10) Breast cancer, left (1999) ?C50.912 - Malignant neoplasm of unspecified site of left female breast (ICD-10) Cholecystitis ?K81.9 - Cholecystitis, unspecified (ICD-10) Acute and chronic cholecystitis ?K81.2 - Acute cholecystitis with chronic cholecystitis (ICD-10) Surgical History (Updated 07/17/24 @ 17:16 by Leslye Hernandez MD) History of left knee replacement (07/17/24) ?Z96.652 - Presence of left artificial knee joint (ICD-10) History of cataract extraction with lens replacement History of total right knee replacement (07/28/23) ?Z96.651 - Presence of right artificial knee joint (ICD-10) History of bunionectomy of left great toe (1994) ?Z98.890 - Other specified postprocedural states (ICD-10) S/P ORIF (open reduction internal fixation) fracture (06/10/12) ?Z98.890 - Other specified postprocedural states (ICD-10) ?Z87.81 - Personal history of (healed) traumatic fracture (ICD-10) Hx of cholecystectomy ?Z90.49 - Acquired absence of other specified parts of digestive tract (ICD-10) Status post blepharoplasty of both eyes (05/2019) ?Z98.890 - Other specified postprocedural states (ICD-10) H/O breast biopsy ?Z98.890 - Other specified postprocedural states (ICD-10) H/O: hysterectomy ?Z90.710 - Acquired absence of both cervix and uterus (ICD-10) Family History (Updated 07/28/23 @ 17:11 by Rachid Chiang MD) Brother CML (chronic myelocytic leukemia) Prostate cancer Cardiovascular disease Mother Alzheimers disease Father Cardiovascular disease Colon cancer Social History (Reviewed 09/07/23 @ 10:35 by Ana Cristina Quiles ~ [facility] Narrative: She lives at home with her . She does not smoke. She infrequently drinks alcohol. She lives in a house where her bedroom/bathroom is up 17 steps. She hopes to return home and sleep in her bedroom. What is your current living situation?: I presently have a place to live Problems where you live: no known problems In the past 12 months, utilities in danger of being shut off: no In past 12 months, lack of transportation kept you from medical appts, meetings, work, or getting things needed for daily living: no In the past 12 mos, have been you worried that your food would run out before you had money to buy more?: never true In the past 12 mos, the food you bought just didn't last and you didn't have money to buy more?: never true Smoking Status: Never smoker How often do you have a drink containing alcohol: monthly or less How many standard drinks containing alcohol do you have on a typical day: 1 or 2 How often do you have six or more drinks on one occasion: Never AUDIT-C Alcohol total score: 1 Non-prescribed substance use: denies use Caffeine: Yes How often does anyone, including family, friends and others, physically hurt you: never How often does anyone, including family, friends and others, insult or talk down to you: never How often does anyone, including family, friends and others, threaten you with harm: never How often does anyone, including family, friends and others, scream or curse at you: never service: No Meds Home Medications and Allergies Home Medications ?Medication ?Instructions ?Recorded ?Confirmed ?Type alendronate 70 mg tablet 70 mg PO Q7D 06/08/23 07/17/24 History omega 7-cxs-hwf-fish oil 100 1 cap PO DAILY 06/08/23 07/17/24 History mg-160 mg-1,000 mg capsule (Fish Oil) azelaic acid 15 % topical gel 1 applic topical BID 07/28/23 07/10/24 History cholecalciferol (vitamin D3) 25 25 mcg PO DAILY 07/28/23 07/17/24 History mcg (1,000 unit) tablet glucosamine sulfate 500 mg tablet 500 mg PO TID 07/28/23 07/17/24 History (Glucosamine) multivitamin (Daily Value tablet) 1 tab PO DAILY 07/28/23 07/17/24 History amlodipine 2.5 mg tablet 2.5 mg PO DAILY 05/23/24 07/17/24 History rosuvastatin 20 mg tablet 20 mg PO QPM 05/23/24 07/17/24 History Allergies Allergy/AdvReac Type Severity Reaction Status Date / Time fentanyl Allergy Intermediate Vomiting Verified 07/17/24 08:40 midazolam (From Versed) Allergy Intermediate Vomiting Verified 07/17/24 08:40 Exam Const: Vital Signs, click to edit/add: Vital Signs - 24 hr 07/17/24 08:58 07/17/24 10:05 07/17/24 10:10 Temperature 98.2 F Pulse Rate 93 73 69 Respiratory Rate 20 20 20 Blood Pressure 140/92 H 144/79 H 135/72 Pulse Oximetry 95 95 100 Oxygen Delivery Me thod Room Air Nasal Cannula Nasal Cannula Oxygen Flow Rate 2 2 07/17/24 10:15 07/17/24 12:40 07/17/24 12:45 Temperature 97.3 F L Pulse Rate 67 67 71 Respiratory Rate 20 20 18 Blood Pressure 118/65 86/59 L 89/57 L Pulse Oximetry 100 93 93 Oxygen Delivery Me thod Nasal Cannula Room Air Oxygen Flow Rate 2 07/17/24 12:50 07/17/24 12:55 07/17/24 13:00 Temperature Pulse Rate 70 58 L 61 Respiratory Rate 16 18 16 Blood Pressure 89/59 L 87/54 L 87/54 L Pulse Oximetry 92 93 93 Oxygen Delivery Me thod Oxygen Flow Rate 07/17/24 13:05 07/17/24 13:10 07/17/24 13:15 Temperature 97.3 F L Pulse Rate 56 L 57 L 52 L Respiratory Rate 17 16 16 Blood Pressure 87/53 L 87/53 L 88/52 L Pulse Oximetry 94 93 95 Oxygen Delivery Me thod Oxygen Flow Rate 07/17/24 13:20 07/17/24 13:25 07/17/24 13:30 Temperature Pulse Rate 57 L 52 L 61 Respiratory Rate 15 16 15 Blood Pressure 89/57 L 92/54 L 89/55 L Pulse Oximetry 97 96 95 Oxygen Delivery Me thod Oxygen Flow Rate 07/17/24 13:35 07/17/24 13:40 07/17/24 13:50 Temperature 97.3 F L Pulse Rate 58 L 50 L 47 L Respiratory Rate 16 15 14 Blood Pressure 92/56 L 91/72 101/65 Pulse Oximetry 97 97 97 Oxygen Delivery Me thod Room Air Oxygen Flow Rate 07/17/24 15:00 07/17/24 15:00 Temperature Pulse Rate Respiratory Rate 16 Blood Pressure Pulse Oximetry 97 97 Oxygen Delivery Me thod Room Air Oxygen Flow Rate Assessment and Plan Assessment and plan (1) History of left knee replacement: Problem comment: Left total knee arthroplasty - subvastus (07/17/24, Dr. Serrano) [facility] medicine team is happy to follow the patient through to discharge. We are expecting a routine postoperative course. I have reconciled home medications and completed our part of the discharge. -I will hold antihypertensives as indicated per our practice standard Status: Acute (2) HTN (hypertension): Problem comment: -amlodipine with hold parameters Status: Acute (3) Hyperlipidemia: Problem comment: -continue Crestor Status: Acute
--- NOTE | 2024-07-17 18:58 | PC.NURSE ---
End of shift-- Very pleasant and cooperative, alert and oriented patient arrived from PACU at approximately 1350. VSS and pt is afebrile. SPO2 maintained >90% on RA. Pain appears well managed with PRN Oxycodone and scheduled Tylenol. Dressing to left knee is C/D/I and CMS is WNL. Pt is using cryo-cuff from previous surgery. LS CTA. She denied nausea and tolerated a regular diet with no difficulty. She was up to the BR with assist of 1, belt and walker and tolerated it well. Pt voided approximately 600ml of clear, yellow urine this shift. was at bedside and appears loving and supportive.
[2024-07-17] MEDS: SENNOSIDES 1 TAB TABLET 2 TAB PO (21:49)
[2024-07-17] MEDS: ROSUVASTATIN CALCIUM 10 MG TABLET 20 MG PO (21:49)
[2024-07-17] MEDS: ASPIRIN 81 MG TABLET EC PO (21:50)
[2024-07-18 03:00] VITALS: BP 136/69; PULSE 69; RESP 20; TEMP 36.7; O2SAT 95
[2024-07-18] MEDS: OXYCODONE 5 MG TABLET PO ×5 (03:12→10:40)
[2024-07-18] MEDS: ACETAMINOPHEN 500 MG TABLET 1000 MG PO ×2 (03:12→09:30)
--- NOTE | 2024-07-18 05:59 | PC.NURSE ---
Pt pleasant, alert, oriented and vitally stable. Saline locked. Pain rated 5/10, prn oxy given. Around 0330 pt stated worsening pain (9/10), staff assisted pt in repositioning, educated pt on utilizing entire dose of oxy and placing ice around the whole knee. Pt stated improvement with these interventions. Moves via 1a, tolerates well. Pt own cryo cuff to operative site. Pt in bed, appears to be resting call light within reach.?
[2024-07-18] MEDS: CEFAZOLIN 2 GM in 0.9 % SODIUM CHLORIDE Mini-bag 100 ML IVPB (06:21)
[2024-07-18 06:27] LABS: Basophils Percent Auto 0.1 % (0.0-3.0); Hematocrit 34.4 % (33.0-51.0); Hemoglobin* 11.1 gm/dL (12.0-16.0); Immature Granulocytes Pct Auto 0.2 %; Lymphocytes Percent Auto 16.6 % (20-44); Mean Corpuscular HGB Conc 32 gm/dL (32-36); Mean Corpuscular Hemoglobin 29 pg (26-34); Mean Corpuscular Volume 89 fL (80-100); Neutrophils Percent Auto 75.1 % (42.0-72.0); Platelet Count* 242 K/uL (140-440); RDW Coefficient of Variation % 12.5 % (11.5-15.5); Red Blood Count 3.88 m/uL (4.00-5.20); White Blood Count* 14.01 K/uL (4.50-11.00)
[2024-07-18 06:37] LABS: Slide Review Reflex No
[2024-07-18 06:38] LABS: Potassium* 4.1 mmol/L (3.6-5.1); Sodium* 133 mmol/L (135-149)
[2024-07-18 06:41] LABS: Blood Urea Nitrogen* 17 mg/dL (7-30); Creatinine* 0.7 mg/dL (0.5-1.5); Estimated Glomerular Filt Rate 88 ml/min
[2024-07-18 07:38] VITALS: BP 112/68; PULSE 63; RESP 18; TEMP 36.6; O2SAT 95
[2024-07-18] MEDS: ASPIRIN 81 MG TABLET EC PO (08:20)
[2024-07-18] MEDS: SENNOSIDES 1 TAB TABLET 2 TAB PO (08:21)
[2024-07-18] MEDS: AMLODIPINE 5 MG TABLET 2.5 MG PO (08:27)
--- NOTE | 2024-07-18 09:29 | PM.ORPN ---
Subjective Subjective Date Seen: 07/18/24 Principal diagnosis: Status postop day 1 left total knee arthroplasty Interval history: Patient reports doing well. No acute events over night. Pain managed with scheduled and PRN medications, ice. DVT prophylaxis: 81 mg aspirin by mouth twice daily, SCDs, walking. Denies fevers, chills, aches, N/V, CP, SOB/GUY, or lightheadedness. Passing flatus. Ortho Exam Narrative Exam Narrative: -Patient appears comfortable; no apparent acute distress -Alert and oriented times 3 -Operative knee mildly swollen; soft tissues supple; no ecchymosis; no erythematous streaking Warmth appropriate -Surgical dressing clean, dry, intact; no drainage -Bilateral calfs soft; no significant swelling, edema, tenderness, erythema, discoloration, warmth, or palpable cords -2+ DP/PT pulses, intact dermatomes and myotomes distally (5/5 strength) Const Vital Signs, click to edit/add: Vital Signs - 24 hr 07/17/24 10:05 07/17/24 10:10 07/17/24 10:15 Temperature Pulse Rate 73 69 67 Pulse Rate [Right Pulse Oximeter] Respiratory Rate 20 20 20 Blood Pressure 144/79 H 135/72 118/65 Blood Pressure [Right Arm] Pulse Oximetry 95 100 100 Oxygen Delivery Method Nasal Cannula Nasal Cannula Nasal Cannula Oxygen Flow Rate 2 2 2 07/17/24 12:40 07/17/24 12:45 07/17/24 12:50 Temperature 97.3 F L Pulse Rate 67 71 70 Pulse Rate [Right Pulse Oximeter] Respiratory Rate 20 18 16 Blood Pressure 86/59 L 89/57 L 89/59 L Blood Pressure [Right Arm] Pulse Oximetry 93 93 92 Oxygen Delivery Method Room Air Oxygen Flow Rate 07/17/24 12:55 07/17/24 13:00 07/17/24 13:05 Temperature Pulse Rate 58 L 61 56 L Pulse Rate [Right Pulse Oximeter] Respiratory Rate 18 16 17 Blood Pressure 87/54 L 87/54 L 87/53 L Blood Pressure [Right Arm] Pulse Oximetry 93 93 94 Oxygen Delivery Method Oxygen Flow Rate 07/17/24 13:10 07/17/24 13:15 07/17/24 13:20 Temperature 97.3 F L Pulse Rate 57 L 52 L 57 L Pulse Rate [Right Pulse Oximeter] Respiratory Rate 16 16 15 Blood Pressure 87/53 L 88/52 L 89/57 L Blood Pressure [Right Arm] Pulse Oximetry 93 95 97 Oxygen Delivery Method Oxygen Flow Rate 07/17/24 13:25 07/17/24 13:30 07/17/24 13:35 Temperature Pulse Rate 52 L 61 58 L Pulse Rate [Right Pulse Oximeter] Respiratory Rate 16 15 16 Blood Pressure 92/54 L 89/55 L 92/56 L Blood Pressure [Right Arm] Pulse Oximetry 96 95 97 Oxygen Delivery Method Oxygen Flow Rate 07/17/24 13:40 07/17/24 13:50 07/17/24 14:00 Temperature 97.3 F L Pulse Rate 50 L 47 L 64 Pulse Rate [Right Pulse Oximeter] Respiratory Rate 15 14 16 Blood Pressure 91/72 101/65 118/65 Blood Pressure [Right Arm] Pulse Oximetry 97 97 98 Oxygen Delivery Method Room Air Room Air Oxygen Flow Rate 07/17/24 14:15 07/17/24 14:30 07/17/24 14:45 Temperature 96.9 F L Pulse Rate 46 L 50 L 59 L Pulse Rate [Right Pulse Oximeter] Respiratory Rate 16 16 16 Blood Pressure 106/63 112/62 118/67 Blood Pressure [Right Arm] Pulse Oximetry 97 97 98 Oxygen Delivery Method Room Air Room Air Room Air Oxygen Flow Rate 07/17/24 15:00 07/17/24 15:00 07/17/24 15:00 Temperature Pulse Rate 54 L Pulse Rate [Right Pulse Oximeter] Respiratory Rate 16 16 Blood Pressure 119/71 Blood Pressure [Right Arm] Pulse Oximetry 97 97 96 Oxygen Delivery Method Room Air Room Air Oxygen Flow Rate 07/17/24 15:30 07/17/24 16:30 07/17/24 17:30 Temperature 97.4 F L 97.4 F L Pulse Rate 63 62 59 L Pulse Rate [Right Pulse Oximeter] Respiratory Rate 16 16 16 Blood Pressure 114/68 116/70 122/65 Blood Pressure [Right Arm] Pulse Oximetry 94 97 95 Oxygen Delivery Method Room Air Room Air Room Air Oxygen Flow Rate 07/17/24 18:30 07/17/24 19:30 07/17/24 23:00 Temperature 97.6 F 97.8 F 97.8 F Pulse Rate 66 66 Pulse Rate [Right Pulse Oximeter] 92 Respiratory Rate 18 18 18 Blood Pressure 119/70 124/64 Blood Pressure [Right Arm] 124/73 Pulse Oximetry 93 93 92 Oxygen Delivery Method Room Air Room Air Room Air Oxygen Flow Rate 07/17/24 23:00 07/17/24 23:00 07/17/24 23:00 Temperature Pulse Rate Pulse Rate [Right Pulse Oximeter] 92 Respiratory Rate 18 Blood Pressure Blood Pressure [Right Arm] Pulse Oximetry 92 95 Oxygen Delivery Method Oxygen Flow Rate 07/18/24 03:00 07/18/24 07:38 Temperature 98.1 F 97.8 F Pulse Rate Pulse Rate [Right Pulse Oximeter] 69 63 Respiratory Rate 20 18 Blood Pressure Blood Pressure [Right Arm] 136/69 112/68 Pulse Oximetry 95 95 Oxygen Delivery Method Room Air Room Air Oxygen Flow Rate Assessment and Plan Assessment and plan (1) History of left knee replacement: Problem details: Left total knee arthroplasty - subvastus (07/17/24, Dr. Serrano) [facility] medicine team is happy to follow the patient through to discharge. We are expecting a routine postoperative course. I have reconciled home medications and completed our part of the discharge. -I will hold antihypertensives as indicated per our practice standard Status: Acute (2) HTN (hypertension): Problem details: -amlodipine with hold parameters Status: Acute (3) Hyperlipidemia: Problem details: -continue Crestor Status: Acute Plan - Complete 23 hour perioperative antibiotics. - PT/OT consult for education and assistance. - Social work consult for discharge planning - Prescribed analgesics as needed. She will use her home cryocuff machine for icing. - DVT prophylaxis: 81 mg aspirin by mouth twice daily, walking, and SCDs - Anticipation is for discharge to home with today 07/18/2024 if the patient remains medically stable, pain is controlled, and they are safe with mobilization.
[2024-07-18 10:57] VITALS: O2SAT 95
[2024-07-18 10:59] VITALS: O2SAT 95
== END 2024-07-18 11:30 | disposition home or self-care (01) ==
LOC: OR 08:34 → MEDSURG 09:18
PROVIDERS: PCP Family Medicine; Visit Provider Orthopaedic Surgery Sports Medicine
PROC: (CPT 27447; principal; 2024-07-17 10:00)
DX: M17.12 Unilateral primary osteoarthritis, left knee (principal); G89.18 Other acute postprocedural pain; I10 Essential (primary) hypertension; Z79.82 Long term (current) use of aspirin; C50.912 Malignant neoplasm of unspecified site of left female breast; R73.01 Impaired fasting glucose; M85.80 Other specified disorders of bone density and structure, unspecified site; E78.5 Hyperlipidemia, unspecified
CPT/HCPCS: 27447; 01402; 36415; 64447; 64454; 73560; 76942; 82565; 84132; 84295; 84520; 85025; 97110; 97116; 97162; 97165; 97530; 97535; 99100; A9270; C1776; J0665; J0690; J1100; J2250; J2371; J2405; J2704; J7120

== ENCOUNTER 2025-03-16 09:40 | Outpatient (CLI) | payer OTHER, SELFPAY ==
--- NOTE | 2025-03-16 10:54 | P.ANES_ITS ---
Anesthesia Charges Start Date/Time Anesthesia Start Date: 03/16/25 Anesthesia Start Time: 10:29 Stop Date/Time Anesthesia Stop Date: 03/16/25 Anesthesia Stop Time: 10:52 Summary Extremes of Age - Over 70 or under 1: ENTRY LEVEL JAVA DEVELOPER Coding CPT Codes CPT Codes: ANEAbida LWR INTST SCR COLSC - 80802 ([id number]) P2 - PATIENT W/MILD SYST DISEASE, QK - OUTSOLE SPLICER 2-4 CNCRNT ANES PROC, QX - ENTRY LEVEL JAVA DEVELOPER SVC W/ MD MED DIRECTION Additional Codes: Summary - Extremes of Age - Over 70 or under 1: ENTRY LEVEL JAVA DEVELOPER ([id number])
--- NOTE | 2025-03-16 10:54 | W.ANESCHARGE ---
Anesthesia Charges Start Date/Time Anesthesia Start Date: 03/16/25 Anesthesia Start Time: 10:29 Stop Date/Time Anesthesia Stop Date: 03/16/25 Anesthesia Stop Time: 10:52 Summary Extremes of Age - Over 70 or under 1: STRAPPER Coding CPT Codes CPT Codes: ANEAbida LWR INTST SCR COLSC - 40785 ([id number]) P2 - PATIENT W/MILD SYST DISEASE, QK - MOTOR VEHICLE LICENCE EXAMINER 2-4 CNCRNT ANES PROC, QX - STRAPPER SVC W/ MD MED DIRECTION Additional Codes: Summary - Extremes of Age - Over 70 or under 1: STRAPPER ([id number])
--- NOTE | 2025-03-16 11:11 | P.ANES_ITS ---
Anesthesia Charges Start Date/Time Anesthesia Start Date: 03/16/25 Anesthesia Start Time: 10:29 Stop Date/Time Anesthesia Stop Date: 03/16/25 Anesthesia Stop Time: 10:52 Summary Extremes of Age - Over 70 or under 1: MDA Coding CPT Codes CPT Codes: ANES LWR INTST SCR COLSC - 21605 ([id number]) P2 - PATIENT W/MILD SYST DISEASE, QK - ARTS AND CRAFTS TEACHER 2-4 CNCRNT ANES PROC, QX - CDL A DRIVER SVC W/ MD MED DIRECTION Additional Codes: Summary - Extremes of Age - Over 70 or under 1: MDA ([id number])
--- NOTE | 2025-03-16 11:11 | W.ANESCHARGE ---
Anesthesia Charges Start Date/Time Anesthesia Start Date: 03/16/25 Anesthesia Start Time: 10:29 Stop Date/Time Anesthesia Stop Date: 03/16/25 Anesthesia Stop Time: 10:52 Summary Extremes of Age - Over 70 or under 1: MDA Coding CPT Codes CPT Codes: ANES LWR INTST SCR COLSC - 19669 ([id number]) P2 - PATIENT W/MILD SYST DISEASE, QK - COMPANY DANCER 2-4 CNCRNT ANES PROC, QX - STOCK ASSOCIATE SVC W/ MD MED DIRECTION Additional Codes: Summary - Extremes of Age - Over 70 or under 1: MDA ([id number])
== END 2025-03-16 09:41 | disposition home or self-care (01) ==
LOC: OP CLINIC 09:42
PROVIDERS: PCP Family Medicine; Visit Provider Internal Medicine Gastroenterology
DX: Z12.11 Encounter for screening for malignant neoplasm of colon (principal); K57.30 Diverticulosis of large intestine without perforation or abscess without bleeding; Z86.0101 Personal history of adenomatous and serrated colon polyps
CPT/HCPCS: 00812; 45378; 99100; J2704